=== PATIENT | male | born 1990 | race Two or more races ===

== ENCOUNTER 2017-11-15 18:59 | Emergency (ER) | payer SELFPAY ==
[2017-11-15] MEDS: FLUORESCEIN OPHTH TEST STRIP. OS (19:30)
[2017-11-15] MEDS: PROPARACAINE 0.5% OPHTH SOLUTION 15ML BOTTLE. OS (19:30)
== END 2017-11-15 20:35 | disposition home or self-care (01) ==
LOC: ER 18:59
DX: S05.02XA Injury of conjunctiva and corneal abrasion without foreign body, left eye, initial encounter (principal); W22.8XXA Striking against or struck by other objects, initial encounter; Y93.89 Activity, other specified; Y99.8 Other external cause status; Y92.89 Other specified places as the place of occurrence of the external cause
CPT/HCPCS: 99283